=== PATIENT | female | born 2000 | race Caucasian/White ===

== ENCOUNTER → 2021-03-29 | Day surgery (SDC) | payer OTHER, BC ==
[2021-03-29 12:08] VITALS: RESP 16; TEMP 98.4
[2021-03-29] MEDS: THYROTROPIN ALFA 1.1 MG VIAL IM NR (12:43)
[2021-03-30 12:35] VITALS: BP 101/66; PULSE 84
[2021-03-30] MEDS: THYROTROPIN ALFA 1.1 MG VIAL IM NR (12:35)
== END ==
LOC: RADNMMAIN 11:01
PROVIDERS: ATTEND Internal Medicine Endocrinology, Diabetes & Metabolism
DX: C73 Malignant neoplasm of thyroid gland (principal)
CPT/HCPCS: 96372; J3240; 79005

== ENCOUNTER → 2021-03-29 | Outpatient (CLI) | payer BC | END | disposition home or self-care (01) | LOC: LABWHC1 10:41 | PROVIDERS: ATTEND Internal Medicine Endocrinology, Diabetes & Metabolism | DX: C73 Malignant neoplasm of thyroid gland (principal) | CPT/HCPCS: 36415; 84432; 84443; 84702; 86800 ==

== ENCOUNTER 2022-02-23 18:43 | Emergency (ER) | payer BC ==
[2022-02-23 19:47] VITALS: TEMP 98.1
[2022-02-23 20:12] LABS: Basophils % (A) 0 %; Eosinophils # (A) 0.1 k/uL (0-0.7); Eosinophils % (A) 1 %; HCT 38.9 % (34.0-46.0); HGB 13.3 gm/dL (11.4-16.0); Lymphocytes # (A) 1.8 k/uL (1.0-4.8); Lymphocytes % (A) 33 %; MCH 31.6 pg (25.0-35.0); MCHC 34.2 g/dL (31.0-37.0); MCV 92.5 fL (80.0-100.0); Mean Platelet Volume 7.3; Monocytes # (A) 0.3 k/uL (0-1.0); Monocytes % (A) 5 %; Neutrophils # (A) 3.1 k/uL (1.3-7.7); Neutrophils % (A) 58 %; Platelet Count 237 k/uL (150-450); RBC 4.21 m/uL (3.80-5.40); RDW 13.4 % (11.5-15.5); WBC 5.4 k/uL (3.8-10.6)
[2022-02-23 20:24] LABS: ALT 16 U/L (4-34); AST 22 U/L (14-36); African American GFR (CKD) >90 (>60 ml/min/1.73 sqM); Albumin 4.3 g/dL (3.5-5.0); Alkaline Phosphatase 61 U/L (38-126); Anion Gap 10 mmol/L; Blood Urea Nitrogen 13 mg/dL (7-17); Carbon Dioxide 24 mmol/L (22-30); Chloride 104 mmol/L (98-107); Glucose 90 mg/dL (74-99); Non-African American GFR(CKD) >90 (>60 ml/min/1.73 sqM); Potassium 3.9 mmol/L (3.5-5.1); Sodium 138 mmol/L (137-145); Total Bilirubin 0.4 mg/dL (0.2-1.3); Total Protein 7.3 g/dL (6.3-8.2)
[2022-02-23] MEDS ORDERED: CALCIUM GLUCONATE IN NACL 1 GM in SALINE 1 100ML.BAG IVPB STA (22:12)
--- NOTE | 2022-02-23 22:26 | ED ---
Recheck HPI - General Chief Complaint: Recheck/Abnormal Lab/Rx Stated Complaint: low calcium Time Seen by Provider: 02/23/22 21:57 Source: patient Mode of arrival: ambulatory Limitations: no limitations - History of Present Illness Initial Comments: This patient is a 21-year-old woman with history of thyroidectomy due to cancer. She states that she had gone to see her field sampling technician today Dr. Gabby Keane, because she had been feeling somewhat fatigued and just not like her usual self. She had some labs drawn and then went home. Tonight she received a call telling her that her calcium was low and that she needed to go to the emergency department. The patient is denying seizures. She is not having current tetany or spasms. MD Complaint: abnormal lab -: hour(s) Returns Today for: Called Because of Abnormal Lab/Test Symptoms Since Prior Visit: no new symptoms Context: called for abnormal lab result Associated Symptoms: none - Related Data Home Medications Medication Instructions Recorded Confirmed Calcium Carbonate [Tums] 500 mg PO BID 02/23/22 02/23/22 Ergocalciferol (Vitamin D2) 1,250 mcg PO SA 02/23/22 02/23/22 [Drisdol (50,000 Iu)] Levothyroxine Sodium [Synthroid] 175 mcg PO DAILY 02/23/22 02/23/22 Allergies Allergy/AdvReac Type Severity Reaction Status Date / Time No Known Allergies Allergy Verified 02/23/22 23:19 Review of Systems ROS Statement: Those systems with pertinent positive or pertinent negative responses have been documented in the HPI. ROS Other: All systems not noted in ROS Statement are negative. Constitutional: Denies: fever, chills Respiratory: Denies: cough, dyspnea Cardiovascular: Denies: chest pain, palpitations Endocrine: Reports: fatigue Gastrointestinal: Denies: abdominal pain, vomiting, diarrhea Musculoskeletal: Denies: back pain Skin: Denies: rash Neurological: Denies: headache, weakness Past Medical History Past Medical History: No Reported History Additional Past Medical History / Comment(s): Pt had cx of thyroid. History of Any Multi-Drug Resistant Organisms: None Reported Additional Past Surgical History / Comment(s): thyroidectomy. Past Psychological History: No Psychological Hx Reported Smoking Status: Never smoker Past Alcohol Use History: Daily Past Drug Use History: None Reported General Exam Limitations: no limitations General appearance: alert, in no apparent distress Head exam: Present: atraumatic, normocephalic Eye exam: Present: normal appearance. Absent: scleral icterus, conjunctival injection Neck exam: Present: normal inspection Respiratory exam: Present: normal lung sounds bilaterally. Absent: respiratory distress, wheezes, rales, rhonchi, stridor Cardiovascular Exam: Present: regular rate, normal rhythm, normal heart sounds. Absent: systolic murmur, diastolic murmur, rubs, gallop GI/Abdominal exam: Present: soft. Absent: distended, tenderness, guarding, rebound, rigid, mass Extremities exam: Present: normal inspection, normal capillary refill. Absent: pedal edema, calf tenderness Back exam: Present: normal inspection. Absent: CVA tenderness (R), CVA tenderness (L) Neurological exam: Present: alert Skin exam: Present: warm, dry, intact, normal color. Absent: rash Course Vital Signs 02/23/22 02/23/22 19:43 22:34 Temperature 98.1 F Pulse Rate 92 83 Respiratory 20 16 Rate Blood Pressure 137/73 120/74 O2 Sat by Pulse 95 99 Oximetry Medical Decision Making - Lab Data Result diagrams: 02/23/22 19:55 02/23/22 19:55 Lab Results 02/23/22 02/23/22 02/23/22 Range/Units 19:55 19:55 22:46 WBC 5.4 (3.8-10.6) k/uL RBC 4.21 (3.80-5.40) m/uL Hgb 13.3 (11.4-16.0) gm/dL Hct 38.9 (34.0-46.0) % MCV 92.5 (80.0-100.0) fL MCH 31.6 (25.0-35.0) pg MCHC 34.2 (31.0-37.0) g/dL RDW 13.4 (11.5-15.5) % Plt Count 237 (150-450) k/uL MPV 7.3 Neutrophils % 58 % Lymphocytes % 33 % Monocytes % 5 % Eosinophils % 1 % Basophils % 0 % Neutrophils # 3.1 (1.3-7.7) k/uL Lymphocytes # 1.8 (1.0-4.8) k/uL Monocytes # 0.3 (0-1.0) k/uL Eosinophils # 0.1 (0-0.7) k/uL Basophils # 0.0 (0-0.2) k/uL Sodium 138 (137-145) mmol/L Potassium 3.9 (3.5-5.1) mmol/L Chloride 104 (98-107) mmol/L Carbon Dioxide 24 (22-30) mmol/L Anion Gap 10 mmol/L BUN 13 (7-17) mg/dL Creatinine 0.66 (0.52-1.04) mg/dL Est GFR (CKD-EPI)AfAm >90 (>60 ml/min/1.73 sqM) Est GFR (CKD-EPI)NonAf >90 (>60 ml/min/1.73 sqM) Glucose 90 (74-99) mg/dL Calcium 7.0 L (8.4-10.2) mg/dL Ionized Calcium Lillian 4.0 L (4.5-5.3) mg/dL Magnesium 1.7 (1.6-2.3) mg/dL Total Bilirubin 0.4 (0.2-1.3) mg/dL AST 22 (14-36) U/L ALT 16 (4-34) U/L Alkaline Phosphatase 61 (38-126) U/L Total Protein 7.3 (6.3-8.2) g/dL Albumin 4.3 (3.5-5.0) g/dL TSH 0.089 L (0.465-4.680) mIU/L - EKG Data -: EKG Interpreted by Tn EKG shows normal: sinus rhythm, axis (Normal), intervals (Normal), QRS complexes (Normal), ST-T waves (Normal) Rate: normal (Rate 82 bpm) Interpretation: normal EKG Disposition Clinical Impression: Hypocalcemia Disposition: HOME SELF-CARE Condition: Good Instructions (If sedation given, give patient instructions): Hypocalcemia (ED) Is patient prescribed a controlled substance at d/c from ED?: No Referrals: Karlene Ayala MD [Primary Care Provider] - 1-2 days Gabby Keane MD [STAFF PHYSICIAN] - 1-2 days
[2022-02-23] MEDS ORDERED: CALCIUM GLUCONATE IN NACL 1 GM in SALINE 1 100ML.BAG IVPB ONE (22:30)
[2022-02-23 22:35] VITALS: BP 120/74; PULSE 83; RESP 16
[2022-02-23 23:06] LABS: Magnesium 1.7 mg/dL (1.6-2.3)
[2022-02-24 00:13] LABS: T4, Free (Free Thyroxine) 1.41 ng/dL (0.78-2.19)
== END 2022-02-23 23:52 | disposition home or self-care (01) ==
LOC: EC 18:43
DX: E83.51 Hypocalcemia (principal)
CPT/HCPCS: 36415; 93005; 84439; 80053; 84443; 82330; 83735; 85025; 99283; 96365; J0610

== ENCOUNTER 2022-02-24 12:30 | Emergency (ER) | payer BC ==
[2022-02-24 13:19] VITALS: TEMP 98.5
--- NOTE | 2022-02-24 13:49 | ED ---
General Adult HPI - General Chief complaint: Recheck/Abnormal Lab/Rx Stated complaint: Low Calcium Time Seen by Provider: 02/24/22 13:35 Source: patient, family, RN notes reviewed, old records reviewed Mode of arrival: ambulatory Limitations: no limitations - History of Present Illness Initial comments: 21-year-old female presents to the emergency room with family member complaining of cramping in her feet and low calcium levels. Patient had a thyroidectomy year ago and her parathyroid glands. Patient has had intermittent problems with hypocalcemia. She was good for almost a year until recently month ago when her levothyroxine was increased to 175 g daily. She started to have symptoms of hypocalcemia again with cramping in her feet generalized weakness. She had labs drawn today reveal a calcium level of 7 with an ionized calcium of 4.0. She was directed to come to the emergency room for treatment. She denies any chest pain or shortness of breath. She is denying any tetany but does complain of intermittent cramping in her feet. -: month(s) (1) Location: left, right (cramping), lower extremity Severity scale (1-10): 0 Consistency: intermittent, now resolved Associated Symptoms: weakness - Related Data Home Medications Medication Instructions Recorded Confirmed Calcium Carbonate [Tums] 500 mg PO BID 02/23/22 02/24/22 Ergocalciferol (Vitamin D2) 1,250 mcg PO SA 02/23/22 02/24/22 [Drisdol (50,000 Iu)] Levothyroxine Sodium [Synthroid] 175 mcg PO DAILY 02/23/22 02/24/22 Allergies Allergy/AdvReac Type Severity Reaction Status Date / Time No Known Allergies Allergy Verified 02/24/22 15:23 Review of Systems ROS Statement: Those systems with pertinent positive or pertinent negative responses have been documented in the HPI. ROS Other: All systems not noted in ROS Statement are negative. Past Medical History Past Medical History: No Reported History Additional Past Medical History / Comment(s): Pt had cx of thyroid. History of Any Multi-Drug Resistant Organisms: None Reported Additional Past Surgical History / Comment(s): thyroidectomy. Past Psychological History: No Psychological Hx Reported Smoking Status: Never smoker Past Alcohol Use History: Occasional Past Drug Use History: None Reported General Exam Limitations: no limitations General appearance: alert, in no apparent distress Head exam: Present: atraumatic Eye exam: Present: normal appearance. Absent: scleral icterus, conjunctival injection Neck exam: Present: normal inspection. Absent: tenderness, meningismus Respiratory exam: Present: normal lung sounds bilaterally. Absent: respiratory distress, accessory muscle use Cardiovascular Exam: Present: regular rate, normal heart sounds GI/Abdominal exam: Present: soft. Absent: distended Extremities exam: Present: normal capillary refill. Absent: tenderness, pedal edema Back exam: Present: normal inspection, full ROM. Absent: tenderness, CVA t enderness (R), CVA tenderness (L), rash noted Neurological exam: Present: alert, oriented X3 Psychiatric exam: Present: normal affect, normal mood Skin exam: Present: warm, dry, intact, normal color. Absent: cyanosis, diapho retic, petechiae, pallor Course Vital Signs 02/24/22 13:17 Temperature 98.5 F Pulse Rate 86 Respiratory 18 Rate Blood Pressure 104/58 O2 Sat by Pulse 100 Oximetry - Reevaluation(s) Reevaluation #1: Case discussed with Dr Mari who suggested 2 g IV piggyback calcium gluconate and then discharge home to follow up with Dr. Keane her turfgrass technician. Patient is agreeable. 02/24/22 15:24 Time: 15:24 EKG Findings - EKG Results: EKG: sinus rhythm (Ventricular rate of 73, NV interval 0.142, QRS 0.86, QTC 0.426) Medical Decision Making - Medical Decision Making Patient was sent by her turfgrass technician for hypocalcemia with weakness and cramping of her feet. Patient states that her levels changed after adjustments to her levothyroxine level. Calcium level was 7.0 on the is 7.3 today. Negative [place] sign. EKG sinus rhythm, QTC .426. Magnesium 1.8. Patient was given 2 g of calcium gluconate piggyback and will be discharged home to follow up with Dr. Keane on Sunday. Directed to return to the emergency room with any new or concerning Case discussed with Dr. Marquez. - Lab Data Result diagrams: 02/24/22 14:21 Lab Results 02/24/22 Range/Units 14:21 Sodium 139 (137-145) mmol/L Potassium 4.1 (3.5-5.1) mmol/L Chloride 103 (98-107) mmol/L Carbon Dioxide 26 (22-30) mmol/L Anion Gap 10 mmol/L BUN 14 (7-17) mg/dL Creatinine 0.66 (0.52-1.04) mg/dL Est GFR (CKD-EPI)AfAm >90 (>60 ml/min/1.73 sqM) Est GFR (CKD-EPI)NonAf >90 (>60 ml/min/1.73 sqM) Glucose 77 (74-99) mg/dL Calcium 7.3 L (8.4-10.2) mg/dL Ionized Calcium Lillian 4.0 L (4.5-5.3) mg/dL Magnesium 1.8 (1.6-2.3) mg/dL Total Bilirubin 0.8 (0.2-1.3) mg/dL AST 25 (14-36) U/L ALT 17 (4-34) U/L Alkaline Phosphatase 69 (38-126) U/L Total Protein 7.9 (6.3-8.2) g/dL Albumin 4.5 (3.5-5.0) g/dL Disposition Clinical Impression: Hypocalcemia Disposition: HOME SELF-CARE Condition: Good Instructions (If sedation given, give patient instructions): Hypocalcemia (ED) Additional Instructions: Continue taking the medications as previously prescribed by your doctor. Return to the emergency room with any new or worsening symptoms and follow-up with your primary care Dr Keane on Sunday morning. Is patient prescribed a controlled substance at d/c from ED?: No Referrals: Karlene Ayala MD [Primary Care Provider] - 1-2 days Gabby Keane MD [STAFF PHYSICIAN] - 1-2 days Time of Disposition: 15:29 Decision Time: 15:09
[2022-02-24 14:52] LABS: ALT 17 U/L (4-34); AST 25 U/L (14-36); African American GFR (CKD) >90 (>60 ml/min/1.73 sqM); Albumin 4.5 g/dL (3.5-5.0); Alkaline Phosphatase 69 U/L (38-126); Anion Gap 10 mmol/L; Blood Urea Nitrogen 14 mg/dL (7-17); Calcium 7.3 mg/dL (8.4-10.2); Carbon Dioxide 26 mmol/L (22-30); Chloride 103 mmol/L (98-107); Glucose 77 mg/dL (74-99); Magnesium 1.8 mg/dL (1.6-2.3); Non-African American GFR(CKD) >90 (>60 ml/min/1.73 sqM); Potassium 4.1 mmol/L (3.5-5.1); Sodium 139 mmol/L (137-145); Total Bilirubin 0.8 mg/dL (0.2-1.3); Total Protein 7.9 g/dL (6.3-8.2)
[2022-02-24] MEDS ORDERED: CALCIUM GLUCONATE IN NACL 2 GM in SALINE 1 100ML.BAG IVPB ONE (15:23)
[2022-02-24 16:22] VITALS: BP 123/62; PULSE 80; RESP 16
== END 2022-02-24 16:45 | disposition home or self-care (01) ==
LOC: EC 12:30
DX: E83.51 Hypocalcemia (principal)
CPT/HCPCS: 36415; 93005; 80053; 82330; 83735; 99285; 96365; J0610

== ENCOUNTER → 2022-03-16 | Outpatient (CLI) | payer BC ==
[2022-03-16 18:44] LABS: African American GFR (CKD) 142.5 (60.0-200.0); Albumin 4.3 g/dL (3.8-4.9); Albumin/Globulin Ratio 1.54 (1.60-3.17); Anion Gap 10.8 mmol/L (10.00-18.00); BUN/Creat Ratio 16.57 Ratio (12.00-20.00); Blood Urea Nitrogen 11.6 mg/dL (9.0-27.0); Calcium 7.7 mg/dL (8.7-10.3); Carbon Dioxide 25.2 mmol/L (20.0-27.5); Globulin 2.8 g/dL (1.6-3.3); Total Bilirubin 0.2 mg/dL (0.30-1.20); Total Protein 7.1 g/dL (6.2-8.2)
--- NOTE | 2022-03-16 19:36 | US ---
EXAMINATION TYPE: US thyroid st tissue head/neck DATE OF EXAM: 03/16/2022 COMPARISON: Nuclear medicine whole body scan 04/08/2021 CLINICAL HISTORY: 21-year-old female C73 MALIGNANT NEOPLASM OF THYROID GLAND. Total thyroidectomy x 1 year ago. TECHNIQUE: Multiple sonographic images of the thyroidectomy bed. FINDINGS: GLAND SIZE: Right Lobe: Surgically absent Left Lobe: Surgically absent Isthmus Thickness: Surgically absent Weir Fisherman notes: Bilateral neck scanned, no evidence of lymphadenopathy. Images show no suspicious soft tissue are nodular area within the thyroidectomy bed. IMPRESSION: Clear thyroidectomy bed by ultrasound.
== END | disposition home or self-care (01) ==
LOC: RADUSWWP 11:50
PROVIDERS: ATTEND Internal Medicine Endocrinology, Diabetes & Metabolism
DX: C73 Malignant neoplasm of thyroid gland (principal); E89.2 Postprocedural hypoparathyroidism; E89.0 Postprocedural hypothyroidism
CPT/HCPCS: 76536; 80053; 82306; 83970; 84443

== ENCOUNTER 2022-08-03 12:53 | Observation (INO) | payer BC ==
[2022-08-03 13:46] LABS: Appearance,Urine Cloudy (Clear); Bacteria,Urine Many /hpf; Bilirubin,Urine Negative (Negative); Blood,Urine Small (Negative); Color,Urine Yellow; Glucose,Urine (UA) 2+ (Negative); Leukocyte Esterase,Urine Large (Negative); Mucus,Urine Moderate /hpf; Nitrite,Urine Negative (Negative); Protein,Urine 2+ (Negative); RBC,Urine 14 /hpf (0-5); Specific Gravity,Urine 1.019 (1.001-1.035); Squamous Epithelial Cell,Urine 13 /hpf (0-4); Urobilinogen,Urine <2.0 mg/dL (<2.0); WBC,Urine 93 /hpf (0-5)
[2022-08-03 13:51] LABS: Ketones,Urine 2+ (Negative)
[2022-08-03] MEDS: SODIUM CHLORIDE 0.9% 1,000 ML IV SCH ×2 (14:54→20:42)
[2022-08-03 15:03] LABS: HCT 34.5 % (34.0-46.0); HGB 11.6 gm/dL (11.4-16.0); MCH 30.9 pg (25.0-35.0); MCHC 33.8 g/dL (31.0-37.0); MCV 91.5 fL (80.0-100.0); Mean Platelet Volume 8.8; Platelet Count 149 k/uL (150-450); RBC 3.77 m/uL (3.80-5.40); RDW 13.6 % (11.5-15.5); WBC 14.3 k/uL (3.8-10.6)
[2022-08-03 16:02] LABS: Band Neutrophils % 13 %; Lymphocytes # (M) 0.86 k/uL (1.0-4.8); Monocytes # (M) 0.43 k/uL (0-1.0); Neutrophils % (M) 78 %; Nucleated Red Blood Cells 0 /100 WBC (0-0); Total Cells Counted 100; Toxic Granulation Present; Toxic Vacuolation Present
--- NOTE | 2022-08-03 16:35 | P.HPOB ---
History of Present Illness H&P Date: 08/03/22 Chief Complaint: flank pain, fever 21 year old presents at 21 weeks 3 days complaining of fever of 101. She was diagnosed with UTI 2 weeks ago and given keflex. She only took four days of medication and then stopped because she lost it. The urine grew e.coli in the c ulture and should have been sensitive to that. UA today showed signs of a continued UTI. With fever, elevated wbc and flank pain, I will admit this patient for IV fluids and IV antibiotics. Review of Systems All systems: negative Constitutional: Denies chills, Denies fever Eyes: denies blurred vision, denies pain Ears, nose, mouth and throat: Denies headache, Denies sore throat Cardiovascular: Denies chest pain, Denies shortness of breath Respiratory: Denies cough Gastrointestinal: Denies abdominal pain, Denies diarrhea, Denies nausea, Denies vomiting Genitourinary: Denies dysuria, Denies hematuria Musculoskeletal: Denies myalgias Integumentary: Denies pruritus, Denies rash Neurological: Denies numbness, Denies weakness Psychiatric: Denies anxiety, Denies depression Endocrine: Denies fatigue, Denies weight change Past Medical History Past Medical History: No Reported History Additional Past Medical History / Comment(s): Pt had cx of thyroid. History of Any Multi-Drug Resistant Organisms: None Reported Additional Past Surgical History / Comment(s): thyroidectomy. Past Psychological History: No Psychological Hx Reported Smoking Status: Never smoker Past Alcohol Use History: Occasional Past Drug Use History: None Reported - Past Family History Mother History Unknown: Yes Family Medical History: No Reported History Medications and Allergies Home Medications Medication Instructions Recorded Confirmed Type Levothyroxine Sodium [Synthroid] 150 mcg PO DAILY 02/23/22 08/03/22 History Acetaminophen Tab [Tylenol Tab] 1,000 mg PO Q6HR 08/03/22 08/03/22 History Vit No.179/Iron/Folic 1 each PO DAILY 08/03/22 08/03/22 History [ Tablet] Allergies Allergy/AdvReac Type Severity Reaction Status Date / Time No Known Allergies Allergy Verified 02/24/22 15:23 Exam Osteopathic Statement: *. No significant issues noted on an osteopathic structural exam other than those noted in the History and Physical/Consult. Vital Signs Temp Pulse Resp BP Pulse Ox 08/03/22 15:17 98.4 F 104 H 18 109/70 100 08/03/22 13:16 97.0 F L 116 H 16 115/55 Intake and Output 08/03/22 08/03/22 08/03/22 06:59 14:59 22:59 Other: Weight 77.111 kg HEart: RRR Lungs: CTAB Abdomen: soft, nontender Extremeties: neg jade's Results Result Diagrams: 08/03/22 14:45 Abnormal Lab Results - Last 24 Hours (Table) 08/03/22 08/03/22 Range/Units 13:28 14:45 WBC 14.3 H (3.8-10.6) k/uL RBC 3.77 L (3.80-5.40) m/uL Plt Count 149 L (150-450) k/uL Neutrophils # (Manual) 13.00 H (1.3-7.7) k/uL Lymphocytes # (Manual) 0.86 L (1.0-4.8) k/uL Urine Appearance Cloudy H (Clear) Urine Protein 2+ H (Negative) Urine Glucose (UA) 2+ H (Negative) Urine Ketones 2+ H (Negative) Urine Blood Small H (Negative) Ur Leukocyte Esterase Large H (Negative) Urine RBC 14 H (0-5) /hpf Urine WBC 93 H (0-5) /hpf Urine WBC Clumps Occasional H (None) /hpf Ur Squamous Epith Cells 13 H (0-4) /hpf Urine Bacteria Many H (None) /hpf Urine Mucus Moderate H (None) /hpf Assessment and Plan (1) 21 weeks gestation of Current Visit: Yes Status: Acute Code(s): Z3A.21 - 21 WEEKS GESTATION OF SNOMED Code(s): 15069175 (2) Pyelonephritis Current Visit: Yes Status: Acute Code(s): N12 - TUBULO-INTERSTITIAL NEPHRITIS, NOT SPCF ACUTE OR CHRONIC SNOMED Code(s): 11235004 Plan: 1. will start Ancef 1gram q 6 hours. 2. 0.9 NS for IV fluids 3. monitor for contractions 4. doppler FHT daily
[2022-08-03] MEDS ORDERED: ONDANSETRON 4 MG/2 ML VIAL IVP PRN (16:57)
[2022-08-03] MEDS: ACETAMINOPHEN TAB 500 MG TAB PO PRN ×2 (17:55→23:39)
[2022-08-03] MEDS ORDERED: SODIUM CHLORIDE 0.9% 500 ML 500 ML IV ONE (20:01)
[2022-08-04] MEDS: SODIUM CHLORIDE 0.9% 1,000 ML IV SCH ×3 (03:29→19:14)
[2022-08-04] MEDS: LEVOTHYROXINE 75 MCG TAB PO SCH (06:13)
--- NOTE | 2022-08-04 06:17 | P.PN ---
Progress Note - Text Progress Note Date: 08/04/22 Patient is resting without new complaints. Vital signs are stable she is afebrile. She still having some right flank pain with movement otherwise feeling somewhat better. Repeat CBC is pending. Urine culture also is pending. Patient's current and IV Ancef. Plan today is to repeat her CBC, await the preliminary culture. Pending all of this she'll most likely need to be watched for at least 24 hours and if afebrile, she could be discharged home on a 7 day course of oral antibiotics.
[2022-08-04 08:22] LABS: Basophils % (A) 0 %; Eosinophils % (A) 0 %; HCT 29.4 % (34.0-46.0); Lymphocytes # (A) 0.8 k/uL (1.0-4.8); Lymphocytes % (A) 10 %; MCH 31.9 pg (25.0-35.0); MCHC 34.1 g/dL (31.0-37.0); MCV 93.5 fL (80.0-100.0); Mean Platelet Volume 8.2; Monocytes # (A) 0.3 k/uL (0-1.0); Monocytes % (A) 3 %; Neutrophils # (A) 7.2 k/uL (1.3-7.7); Neutrophils % (A) 85 %; Platelet Count 128 k/uL (150-450); RBC 3.14 m/uL (3.80-5.40); RDW 13.5 % (11.5-15.5); WBC 8.4 k/uL (3.8-10.6)
[2022-08-04 08:25] VITALS: RESP 16
[2022-08-04] MEDS: ACETAMINOPHEN TAB 500 MG TAB PO PRN (11:55)
[2022-08-05] MEDS: SODIUM CHLORIDE 0.9% 1,000 ML IV SCH (01:42)
[2022-08-05] MEDS: LEVOTHYROXINE 75 MCG TAB PO SCH (05:49)
[2022-08-05 06:07] LABS: Basophils % (A) 0 %; Eosinophils % (A) 1 %; HCT 26.8 % (34.0-46.0); Lymphocytes # (A) 0.8 k/uL (1.0-4.8); Lymphocytes % (A) 12 %; MCH 30.8 pg (25.0-35.0); MCHC 33.4 g/dL (31.0-37.0); MCV 92.1 fL (80.0-100.0); Mean Platelet Volume 8.6; Monocytes # (A) 0.3 k/uL (0-1.0); Monocytes % (A) 5 %; Neutrophils # (A) 5.5 k/uL (1.3-7.7); Neutrophils % (A) 81 %; Platelet Count 136 k/uL (150-450); RBC 2.91 m/uL (3.80-5.40); RDW 13.5 % (11.5-15.5); WBC 6.9 k/uL (3.8-10.6)
[2022-08-05 08:14] VITALS: BP 83/47; PULSE 105; TEMP 98.2
--- NOTE | 2022-08-05 09:29 | P.DS ---
Providers Date of admission: 08/03/22 14:12 Expected date of discharge: 08/05/22 Attending physician: Charly Bangura Primary care physician: Stated None Hospital Course: This is a 21-year-old female 1 para 0 currently at 21-5/7 weeks who presented with flank pain, fever, and history of E. coli urinary tract infection. She had been partially treated with oral antibiotics home but then lost her antibiotics. Upon arrival she did have an elevated white count and fever of 101. She was placed on IV Ancef and her white count and fever didn't dissipate. Her urine culture actually shows mixed urogenital john however we do know that she did have E. coli prior to admission to the hospital. She currently denies any nausea vomiting or flank pain. She has a normal appetite. Her baby is moving. She feels good and would like to go home. Her platelet count was mildly low but has been stable through her admission. Her white count did come down to normal. Her hemoglobin is 9. She is advised to continue her vitamins that also start taking an iron supplement at least every other day. She will be discharged home with oral Keflex 500 mg 4 times a day for 7 days. She is advised to follow up with Dr. Bangura in the office next week. Patient Condition at Discharge: Stable Plan - Discharge Summary New Discharge Prescriptions: New Cephalexin [Keflex] 500 mg PO Q6HR 1 Days #7 cap Continue Vit No.179/Iron/Folic [ Tablet] 1 each PO DAILY Levothyroxine Sodium [Synthroid] 150 mcg PO DAILY Acetaminophen Tab [Tylenol] 1,000 mg PO Q6HR Discharge Medication List Levothyroxine Sodium [Synthroid] 150 mcg PO DAILY 02/23/22 [History] Acetaminophen Tab [Tylenol] 1,000 mg PO Q6HR 08/03/22 [History] Vit No.179/Iron/Folic [ Tablet] 1 each PO DAILY 08/03/22 [History] Cephalexin [Keflex] 500 mg PO Q6HR 1 Days #7 cap 08/05/22 [Rx] Follow up Appointment(s)/Referral(s): Charly Bangura MD [STAFF PHYSICIAN] - 1 Week Discharge Disposition: HOME SELF-CARE
== END 2022-08-05 10:10 | disposition home or self-care (01) ==
LOC: FBPOP 12:53 → 4FBP 14:12
PROVIDERS: ADMIT Obstetrics & Gynecology; ATTEND Obstetrics & Gynecology
DX: O23.02 Infections of kidney in pregnancy, second trimester (principal); O99.282 Endocrine, nutritional and metabolic diseases complicating pregnancy, second trimester; E89.0 Postprocedural hypothyroidism; Z79.890 Hormone replacement therapy; Z3A.21 21 weeks gestation of pregnancy
CPT/HCPCS: 96365; 96366 ×3; 99213; 83605; 85025 ×3; 81001; 87040; 87086; G0378 ×3; J0690 ×3

== ENCOUNTER 2022-12-03 10:44 | Outpatient (CLI) | payer BC ==
[2022-12-03 11:12] VITALS: BP 133/75; PULSE 88; RESP 16; TEMP 97.4
--- NOTE | 2022-12-04 00:46 | P.MSEPDOC ---
Presenting Problems - Arrival Data Date of Arrival on Unit: 12/03/22 Time of Arrival on Unit: 10:44 Mode of Transport: Ambulatory - Complaint OB-Reason for Admission/Chief Complaint: Rule Out SROM Medical History - Information : 1 Para: 0 Term: 0 : 0 Abortions: Spontaneous or Elective: 0 Number of Living Children: 0 - Gestational Age Gestational Age by MARY BETH (wks/days): 38 Weeks and 6 Days Review of Systems - Review of Systems Constitutional: No problems Breast: No problems ENT: No problems Cardiovascular: No problems Respiratory: No problems Gastrointestinal: No problems Genitourinary: No problems Musculoskeletal: No problems Neurological: No problems Skin: No problems Vital Signs - Temperature Temperature: 97.4 F Temperature Source: Oral - Pulse Right Pulse Rate: 88 Pulse Assessment Method: Automatic Cuff - Respirations Respiratory Rate: 16 Oxygen Delivery Method: Room Air O2 Sat by Pulse Oximetry: 100 - Blood Pressure Right Arm Blood Pressure: 133/75 Blood Pressure Mean: 94 Blood Pressure Source: Automatic Cuff Medical Screen Scoring - Cervical Exam Dilation (cm): 3 Effacement (%): 80 Station: -2 - Assessment - Baby A Baseline FHR: 130 Heart Rate - NICHD Category: Category I (Normal) NST: Reactive Physician Notification - Physician Notified Physician Notified Date: 12/03/22 Physician Notified Time: 11:10 Physician: Charly Bangura Order Received: Yes (discharge home) Maternal Triage Index - Maternal Triage Index Presenting for scheduled procedure w/no complaint: No - Stat/Priority 1 Stat Priority 1: No - Urgent/Priority 2 Urgent Priority 2: No - Prompt/Priority 3 Prompt Priority 3: No - Non-Urgent/Priority 4 Non-Urgent Priority 4: Yes Criteria Met for Priority 4: Amnisure negative, criteria met Disposition - Disposition OB Disposition: Discharge to home Discharge Date: 12/03/22 Discharge Time: 11:15 I agree with the RN Medical Screening Exam: Yes Case reviewed; plan agreed upon as documented in EMR&OBIX.: Yes Diagnosis: ENCOUNTER FOR FULL-TERM UNCOMPLICATED DELIVERY
== END 2022-12-03 11:10 | disposition home or self-care (01) ==
LOC: FBPOP 10:44
PROVIDERS: ATTEND Obstetrics & Gynecology
DX: O80 Encounter for full-term uncomplicated delivery (principal); Z3A.38 38 weeks gestation of pregnancy; Z91.048 Other nonmedicinal substance allergy status
CPT/HCPCS: 59025; 84112; 99213

== ENCOUNTER 2022-12-03 23:21 | Inpatient (IN) | payer BC ==
[2022-12-04] MEDS ORDERED: TERBUTALINE 1 MG/ML VIAL SQ PRN (00:12)
[2022-12-04] MEDS ORDERED: LIDOCAINE 0.5% (PF) 5 MG/ML (50 ML SDV) SQ PRN (00:12)
[2022-12-04] MEDS: LACTATED RINGERS 1,000 ML IV SCH ×2 (00:15→09:00)
[2022-12-04] MEDS ORDERED: BUTORPHANOL 1 MG/ML 1 ML VIAL IV PRN (00:30)
--- NOTE | 2022-12-04 00:44 | P.HPOB ---
History of Present Illness H&P Date: 12/04/22 Chief Complaint: Contractions This patient is a pleasant 22-year-old 1 para 0 female estimated date of confinement 12/11/2022 estimated gestational age 39-0/7 weeks gestation who presents to labor and delivery with complaints of contractions. Patient's found to be 8 cm dilated with a positive amnio sure thought to be in active labor. care is complicated by history of thyroid cancer status post total thyroidectomy and they also did a total parathyroidectomy. Patient's had problems with low calcium and did have to receive some IV calcium, she also has been watched closely by her elastic yarn twister helper for thyroid control. Patient was admitted in this at approximately 20 weeks for pyelonephritis as well. Patient's been followed with growth ultrasounds and nonstress testing which have been normal. Review of Systems Genitourinary: Reports Menstruation: Reports amenorrhea Past Medical History Past Medical History: Cancer Additional Past Medical History / Comment(s): Pt had cancer of thyroid 2020; patient was admitted this for her E. coli pyelonephritis History of Any Multi-Drug Resistant Organisms: None Reported Additional Past Surgical History / Comment(s): thyroidectomy. Past Anesthesia/Blood Transfusion Reactions: No Reported Reaction Past Psychological History: No Psychological Hx Reported Smoking Status: Never smoker Past Alcohol Use History: Occasional Past Drug Use History: None Reported - Past Family History Mother History Unknown: Yes Family Medical History: No Reported History Medications and Allergies Home Medications Medication Instructions Recorded Confirmed Type Levothyroxine Sodium [Synthroid] 175 mcg PO DAILY 02/23/22 12/03/22 History Allergies Allergy/AdvReac Type Severity Reaction Status Date / Time adhesive tape AdvReac Mild Rash/Hives Verified 12/03/22 23:27 Exam Vital Signs Temp Pulse Resp BP Pulse Ox 12/04/22 00:05 97.2 F L 83 16 121/78 99 Intake and Output 12/03/22 12/03/22 12/04/22 14:59 22:59 06:59 Other: Weight 80.739 kg - OBG Physical Exam Abdomen: bowel sounds normal, no diffuse tenderness, no bruit present, no guarding noted, no hepatomegaly, no splenomegaly, no mass Vulva: both: normal Vagina: normal moisture, no discharge Cervix: no lesion (Patient is 8 cm dilated completely effaced -1 station. There is a bulging bag of water.), no discharge Uterus: enlarged Results blood work shows she is B+, rubella immune, RPR nonreactive, hepatitis B is nonreactive, toxoplasmosis was negative, Glucola was abnormal with a normal three-hour gtt., B strep was negative, ultrasounds shows normal anatomy. Most recent growth ultrasounds beginning this month showed baby to be 5 lbs. 14 oz. which is the 50th to the 75th percentile. Assessment and Plan Assessment: This is a pleasant 22-year-old 1 para 0 female 39-0/7 weeks gestation who is admitted to labor and delivery in active labor. Plan is pain control and anticipate vaginal delivery. (1) 39 weeks gestation of Current Visit: Yes Status: Acute Code(s): Z3A.39 - 39 WEEKS GESTATION OF SNOMED Code(s): 18123009 (2) Normal labor Current Visit: Yes Status: Acute Code(s): O80 - ENCOUNTER FOR FULL-TERM UNCOMPLICATED DELIVERY; Z37.9 - OUTCOME OF DELIVERY, UNSPECIFIED SNOMED Code(s): 74833150 (3) Thyroid cancer Current Visit: Yes Status: Chronic Code(s): C73 - MALIGNANT NEOPLASM OF THYROID GLAND SNOMED Code(s): 469630554
[2022-12-04 00:47] LABS: Basophils % (A) 0 %; Eosinophils % (A) 0 %; HCT 32.8 % (34.0-46.0); HGB 10.8 gm/dL (11.4-16.0); Lymphocytes # (A) 1.9 k/uL (1.0-4.8); Lymphocytes % (A) 19 %; MCH 25.6 pg (25.0-35.0); MCHC 33.1 g/dL (31.0-37.0); MCV 77.4 fL (80.0-100.0); Mean Platelet Volume 9.6; Monocytes # (A) 0.5 k/uL (0-1.0); Monocytes % (A) 5 %; Neutrophils # (A) 7.6 k/uL (1.3-7.7); Neutrophils % (A) 75 %; Platelet Count 230 k/uL (150-450); Poikilocytosis Slight; RBC 4.24 m/uL (3.80-5.40); RDW 14.4 % (11.5-15.5); WBC 10.1 k/uL (3.8-10.6)
[2022-12-04] MEDS ORDERED: OXYTOCIN 10 UNIT/ML 1 ML VIAL IM ONE (02:35)
[2022-12-04] MEDS ORDERED: bisacodyL 10 MG SUPP RECTAL PRN (02:51)
[2022-12-04] MEDS ORDERED: IBUPROFEN 600 MG TAB PO PRN (02:51)
[2022-12-04] MEDS ORDERED: diphenhydrAMINE 25 MG CAP PO PRN (02:51)
[2022-12-04] MEDS ORDERED: SIMETHICONE 80 MG CHEWABLE PO PRN (02:51)
[2022-12-04] MEDS ORDERED: ZOLPIDEM 5 MG TAB PO PRN (02:51)
[2022-12-04] MEDS ORDERED: LANOLIN CREAM 5 GM TUBE TOPICAL PRN (02:51)
[2022-12-04] MEDS ORDERED: diphenhydrAMINE 50 MG/ML 1 ML VIAL IVP PRN (02:51)
[2022-12-04] MEDS ORDERED: BENZOCAINE/MENTHOL SPRAY 1 GM/SPRAY AEROSOL TOPICAL PRN (02:51)
[2022-12-04] MEDS ORDERED: HYDROCORTISONE 2.5% RECTAL CREAM 30 GM TUBE RECTAL PRN (02:51)
--- NOTE | 2022-12-04 02:57 | P.PROBDLV ---
Vaginal Delivery Note - . Vaginal Delivery Note: Normal spontaneous vaginal delivery viable female Apgars 8 and 9 delivery time is 0232 hours. Please see dictated H&P for intimate details of this patient's admission. In brief summary this is a pleasant 22-year-old 1 para 0 female 39-0/7 weeks gestation admitted to labor and delivery with complaints of contractions found to be 8 cm dilated in active labor. Patient is artificial rupture membranes for clear fluid. Patient received one dose of Stadol for pain control and quickly progresses to complete. Patient pushes the head to the perineum. Posterior perineum was supported we have controlled delivery of the infant's head over the intact perineum. Mouth and nares are bulb suctioned. There is no evidence of a nuchal cord. At this time is noted to have a hand presenting anteriorly however this spontaneously delivers with no maternal effort. With gentle downward traction we then have deliver the anterior shoulder and posterior shoulder and rest this 's body. This is a vigorous viable female Apgars are 8 and 9 delivery time was 0232 hours. Infant has spontaneous respirations and good cry and grossly appears normal. The infant is then laid on the mother's abdomen. When the cord is done pulsating, it is doubly clamped and then cut. The placenta is then spontaneously delivered intact. It is noted this time the patient's IV is not functioning has come out therefore she is given 10 units of pit IM. I massage the uterus until another IV QB started. Bleeding is normal. Inspection of the perineum shows a first- degree laceration was repaired with 3-0 Vicryl in the usual fashion. There is also multiple small condyloma posteriorly which were known. Inspection of perineum shows good reapproximation. All counts are correct 3. There are no complications.
[2022-12-04] MEDS ORDERED: OXYTOCIN 30 UNITS/500 ML NS 30 UNIT in SALINE 1 500ML.BAG IV SCH ×2 (03:00)
[2022-12-04 03:55] LABS: Basophils % (A) 0 %; Eosinophils % (A) 0 %; HCT 32.9 % (34.0-46.0); HGB 10.5 gm/dL (11.4-16.0); Lymphocytes # (A) 0.8 k/uL (1.0-4.8); Lymphocytes % (A) 6 %; MCH 25.1 pg (25.0-35.0); MCV 78.5 fL (80.0-100.0); Mean Platelet Volume 9.5; Monocytes # (A) 0.2 k/uL (0-1.0); Monocytes % (A) 2 %; Neutrophils % (A) 91 %; Platelet Count 196 k/uL (150-450); Poikilocytosis Slight; RBC 4.18 m/uL (3.80-5.40); RDW 14.3 % (11.5-15.5); WBC 12.1 k/uL (3.8-10.6)
[2022-12-04] MEDS: ACETAMINOPHEN TAB 325 MG TAB PO PRN ×2 (07:30→19:00)
[2022-12-04] MEDS: SENNOSIDES-DOCUSATE SODIUM 1 EACH TAB PO SCH (07:31)
[2022-12-04] MEDS: CALCIUM CARBONATE 500 MG CHEWABLE PO SCH ×3 (08:45→18:59)
[2022-12-05] MEDS: SENNOSIDES-DOCUSATE SODIUM 1 EACH TAB PO SCH ×2 (03:03→09:02)
[2022-12-05] MEDS: CALCIUM CARBONATE 500 MG CHEWABLE PO SCH (03:03)
--- NOTE | 2022-12-05 06:04 | P.PNOBGVD ---
Subjective - Subjective Patient reports: Reports appetite normal, Reports voiding normally, Reports pain well controlled, Reports ambulating normally : doing well Objective - Latest Vital Signs Latest vital signs: Vital Signs Temp Pulse Resp BP Pulse Ox 12/04/22 23:40 98.2 F 96 17 109/70 99 12/04/22 16:00 98.1 F 77 16 110/69 100 12/04/22 12:00 97.9 F 71 16 116/73 12/04/22 07:49 97.8 F 74 16 111/70 98 Intake and Output 12/04/22 12/04/22 12/05/22 14:59 22:59 06:59 Output Total 150 Balance -150 Output: Estimated Blood Loss 150 Other: # Voids 1 - Exam Lungs: bilateral: normal Chest: Normal S1, Normal S2 Extremities: Present: normal Abdomen: Present: normal appearance, soft Uterus: Present: normal, firm Assessment and Plan Assessment: day #1. Patient is resting without complaints and wishes to go home. Vital signs are stable she's afebrile. Uterus is firm nontender and she is having normal lochia. I did check a calcium level on her yesterday was elevated from her previous of 7.0-7.7. Patient will continue her calcium therapy and follow up with her dining room helper for this. Plan today is to continue routine care discharge home later this morning (1) 39 weeks gestation of Current Visit: Yes Status: Acute Code(s): Z3A.39 - 39 WEEKS GESTATION OF SNOMED Code(s): 99921214 (2) Normal labor Current Visit: Yes Status: Acute Code(s): O80 - ENCOUNTER FOR FULL-TERM UNCOMPLICATED DELIVERY; Z37.9 - OUTCOME OF DELIVERY, UNSPECIFIED SNOMED Code(s): 99369814 (3) Thyroid cancer Current Visit: Yes Status: Chronic Code(s): C73 - MALIGNANT NEOPLASM OF THYROID GLAND SNOMED Code(s): 510092283
--- NOTE | 2022-12-05 06:08 | P.DS ---
Providers Date of admission: 12/03/22 23:46 Expected date of discharge: 12/05/22 Attending physician: Charly Bangura Primary care physician: Stated None - Discharge Diagnosis(es) (1) 39 weeks gestation of Current Visit: Yes Status: Acute (2) Normal labor Current Visit: Yes Status: Acute (3) Thyroid cancer Current Visit: Yes Status: Chronic Hospital Course: Please see dictated H&P for intimate details of this patient's admission. Brief summary this is a pleasant 22-year-old 1 para 0 female 39-0/7 weeks gestation admitted to labor and delivery in active labor. Patient quickly goes on have a vaginal delivery viable female . Please see dictated delivery note. day #1 patient's felt be stable for discharge home follow up with me in 6 weeks. Patient will also follow up with her manager fiber due to known low calcium levels. Procedures: Normal spontaneous vaginal delivery Patient Condition at Discharge: Good Plan - Discharge Summary New Discharge Prescriptions: New Ibuprofen [Motrin] 600 mg PO Q6HR PRN #30 tab PRN Reason: Mild Pain (Scale 1 To 3) No Action Levothyroxine Sodium [Synthroid] 175 mcg PO DAILY Discharge Medication List Levothyroxine Sodium [Synthroid] 175 mcg PO DAILY 02/23/22 [History] Ibuprofen [Motrin] 600 mg PO Q6HR PRN #30 tab 12/05/22 [Rx] Follow up Appointment(s)/Referral(s): Charly Bangura MD [STAFF PHYSICIAN] - 01/16/23 9:15 am Patient Instructions/Handouts: Vaginal Delivery (DC) Activity/Diet/Wound Care/Special Instructions: No intercourse or anything per vagina for 6 weeks. Please call if any fever, chills, excessive vaginal bleeding, and/or abdominal pain. Discharge Disposition: HOME SELF-CARE
--- NOTE | 2022-12-05 07:23 | P.MSEPDOC ---
Presenting Problems - Arrival Data Date of Arrival on Unit: 12/03/22 Time of Arrival on Unit: 23:46 Mode of Transport: Ambulatory - Complaint OB-Reason for Admission/Chief Complaint: Possible Onset of Labor, Rule Out SROM Comment: Pt presents to triage with c/o contractions states approximately 2-3 minutes. apart unrelieved by warm showers/compresses. Pt was in triage earlier this afternoon. with contractions but was sent home after no cervical change. Pt also states that she. feels as though she is constantly peeing and is not sure if her water broke. Medical History - Information : 1 Para: 0 Term: 0 : 0 Abortions: Spontaneous or Elective: 0 Number of Living Children: 0 - Gestational Age Gestational Age by MARY BETH (wks/days): 39 Weeks and 0 Days Review of Systems - Review of Systems Constitutional: No problems Breast: No problems ENT: No problems Cardiovascular: No problems Respiratory: No problems Gastrointestinal: No problems Genitourinary: No problems Musculoskeletal: No problems Neurological: No problems Skin: No problems Vital Signs - Temperature Temperature: 98.2 F Temperature Source: Oral - Pulse Pulse Oximetery Pulse Rate: 96 Pulse Assessment Method: Automatic Cuff - Respirations Respiratory Rate: 17 Oxygen Delivery Method: Room Air O2 Sat by Pulse Oximetry: 99 - Blood Pressure Right Arm Blood Pressure: 109/70 Blood Pressure Mean: 83 Blood Pressure Source: Automatic Cuff Medical Screen Scoring - Cervical Exam Dilation (cm): 4 Effacement (%): 80 Station: -2 Membranes: Ruptured - Uterine Contractions Intensity: Moderate Resting: Soft to palpation - Assessment - Baby A Baseline FHR: 130 Heart Rate - NICHD Category: Category I (Normal) NST: Reactive Physician Notification - Physician Notified Physician Notified Date: 12/03/22 Physician Notified Time: 23:51 Physician: Charly Bangura New Order Received: Yes - Notification Comment Comment: Dr. Bangura called back, reported on pt status, GA, G/P, contraction pattern,. cervical exam, positive amnisure, order to admit pt. Maternal Triage Index - Maternal Triage Index Presenting for scheduled procedure w/no complaint: No - Stat/Priority 1 Stat Priority 1: No - Urgent/Priority 2 Urgent Priority 2: No - Prompt/Priority 3 Prompt Priority 3: No - Non-Urgent/Priority 4 Non-Urgent Priority 4: Yes Criteria Met for Priority 4: 38 6/7 with c/o contractions and leaking fluid Disposition - Disposition OB Disposition: Admit Transferred to:: [facility] I agree with the RN Medical Screening Exam: Yes Case reviewed; plan agreed upon as documented in EMR&OBIX.: Yes Diagnosis: ENCOUNTER FOR FULL-TERM UNCOMPLICATED DELIVERY
[2022-12-05 07:33] VITALS: BP 120/72; PULSE 84; RESP 16; TEMP 98.3
== END 2022-12-05 12:13 | disposition home or self-care (01) | DRG 806 ==
LOC: FBPOP 23:21 → 4FBP 23:46
PROVIDERS: ADMIT Obstetrics & Gynecology; ATTEND Obstetrics & Gynecology
PROC: 10E0XZZ Delivery of Products of Conception, External Approach (ICD-10-PCS; principal; 2022-12-04)
PROC: 10907ZC Drainage of Amniotic Fluid, Therapeutic from Products of Conception, Via Natural or Artificial Opening (ICD-10-PCS; principal; 2022-12-04)
PROC: 0HQ9XZZ Repair Perineum Skin, External Approach (ICD-10-PCS; principal; 2022-12-04)
DX: O99.284 Endocrine, nutritional and metabolic diseases complicating childbirth (principal); O98.32 Other infections with a predominantly sexual mode of transmission complicating childbirth; O70.0 First degree perineal laceration during delivery; A63.0 Anogenital (venereal) warts; E89.2 Postprocedural hypoparathyroidism; E89.0 Postprocedural hypothyroidism; E83.51 Hypocalcemia; Z85.850 Personal history of malignant neoplasm of thyroid; Z28.310 Unvaccinated for COVID-19; Z79.890 Hormone replacement therapy; Z86.19 Personal history of other infectious and parasitic diseases; Z91.048 Other nonmedicinal substance allergy status; Z3A.39 39 weeks gestation of pregnancy; Z37.0 Single live birth
CPT/HCPCS: 59025; 82310; 84112; 85025; 86850; 86900; 86901; 99213